=== PATIENT | male | born 1960 | race Caucasian/White ===

== ENCOUNTER → 2021-08-08 08:10 | Outpatient (CLI) | payer OTHER, SELFPAY ==
--- NOTE | ~2021-08-08 | XR_ITS ---
EXAMINATION:XR cervical spine min 6V DATE: 08/08/2021 08:28 INDICATION: Neck pain TECHNIQUE: AP, lateral in neutral, flexion, extension, lateral swimmers and odontoid views of the cer vical spine are provided. COMPARISON: None FINDINGS: There are 2 mm of anterolisthesis of C2 on C3 and C3 on C4 and 3 mm of anterolisthesis of C 4 on C5. Alignment reduces to anatomic with extension and is unchanged with flexion. The odontoid is intact. No fracture is identified. The vertebral body heights are maintained. There is severe loss of intervertebral disc space height at C5-6 and C6-7 and mild loss of disc space height throughout the remainder of the cervical spine. There is severe multilevel facet and uncovertebral joint osteoarthri tis. Prevertebral soft tissues are normal. IMPRESSION: 1. Severe cervical spondylosis without acute findings. Reviewed, dictated and finalized at location B. DIVER
== END ==
PROVIDERS: Visit Provider Chiropractor Rehabilitation
DX: M47.892 Other spondylosis, cervical region (principal)
CPT/HCPCS: 72052

== ENCOUNTER 2022-08-15 00:38 | Day surgery (SDC) | payer OTHER, SELFPAY ==
[2022-08-08 13:54] VITALS: BMI 35.8
[2022-08-15 06:27] VITALS: BP 133/74; PULSE 81; RESP 18; TEMP 36.3; O2SAT 96
[2022-08-15] MEDS: LACTATED RINGERS 1,000 ML 150 ML IV CONT (06:42)
[2022-08-15 06:47] LABS: Glucose Point of Care 176 mg/dl (65-105)
--- NOTE | 2022-08-15 06:53 | WPDANESEPPF ---
Anes - Initial Pre Proc Eval Procedure: Operation Date: 08/15/22 07:30 Proposed Procedures p Colonoscopy - Lacho Randall MD Date/Time: 08/15/22 06:53 Surgeon: Lacho Randall MD Pre Op Diagnosis: other fecal abnormalities Patient Data Age: 62 Gender: M Height: 1.78 m Weight: 111.8 kg Last Vital Signs Temp 36.3 C L 08/15/22 06:27 Pulse 81 08/15/22 06:27 Resp 18 08/15/22 06:27 BP 133/74 08/15/22 06:27 Pulse Ox 96 08/15/22 06:27 O2 Del Method Room Air 08/15/22 06:27 Allergies Allergy/AdvReac Type Severity Reaction Status Date / Time dextromethorphan Allergy Intermediate Shakiness Verified 08/15/22 06:25 guaifenesin Allergy Intermediate Shakiness Verified 08/15/22 06:25 oxycodone [From Percocet] AdvReac Intermediate Nausea and Verified 08/15/22 06:25 Vomiting Sulfa (Sulfonamide AdvReac Intermediate CONSTIPATIO Verified 08/15/22 06:25 Antibiotics) N Home Medications Medication Instructions Recorded Confirmed Type ferrous fumarate 325 mg (106 mg 325 mg PO BID 07/11/19 08/08/22 History iron) tablet acetaminophen 500 mg tablet 500 mg PO Q6H PRN Pain 09/15/19 08/08/22 History blood-glucose sensor (Dexcom G6 #9 ea 01/30/22 04/16/22 Rx Sensor device) blood-glucose transmitter (Dexcom #9 ea 01/30/22 04/16/22 Rx G6 Transmitter device) icosapent ethyl 1 gram capsule 2 g PO BID #360 caps 04/14/22 08/08/22 Rx (Vascepa) empagliflozin 25 mg tablet 25 mg PO DAILY #90 tabs 06/22/22 08/08/22 Rx (Jardiance) triamterene 37.5 1 tablet PO QAM #90 tabs 06/22/22 08/08/22 Rx mg-hydrochlorothiazide 25 mg tablet clonazepam 2 mg tablet 1 mg PO QHS PRN insomnia #45 tabs 07/01/22 08/08/22 Rx metformin 500 mg tablet,extended 1,000 mg PO HS 08/08/22 08/08/22 History release 24 hr pantoprazole 40 mg tablet,delayed 40 mg PO DAILY 08/08/22 08/08/22 History release pregabalin 150 mg capsule 150 mg PO BID 08/08/22 08/08/22 History rosuvastatin 10 mg tablet (Crestor) 10 mg PO HS 08/08/22 08/08/22 History Laboratory Tests 08/15/22 06:45 POC Capillary Glucose 176 mg/dl H mg/dl (65-105) Patient hx anesthesia problems: none Family hx anesthesia problems: none Results Review: All pre-operative results and documents have been reviewed as part of the pre-operative evaluation. [facility] Past Medical History Medical History BMI 34.0-34.9,adult BMI over 35 Diabetic neuropathy Essential (primary) hypertension Family history of GI malignancy Hyperlipidemia, unspecified Iron deficiency anemia Neck muscle spasm Other hyperlipidemia Sleep apnea in adult Spinal stenosis of lumbosacral region Type 2 diabetes mellitus without complications Family History Family History Mother Patient's mother is in good health Father Family history of diabetes mellitus in first degree relative Family history of heart disease in male family member before age 55 Other Family history of cardiovascular disease Social History Social History Smoking status: Never smoker Alcohol intake: current Substance use: never Substance use type: does not use Lack of Transportation: No Lack of Food: Never True Current Housing: I Have Housing Concerned About Future Housing: No Difficulty Paying Gas/Electric Bills: No Difficulty Paying for Meds: No Currently Unemployed: No Education: Bachelor's Degree Difficulty w/ Childcare or Family Care: No Living arrangements: with family Spiritual care concerns: No Anes - Eval Final PreProcedure Day of Procedure 08/15/22 06:53 Patient weight: obese Heart: regular rate and rhythm Lungs: clear to auscultation Airway: Mallampati scale class II Neurological: alert and oriented Last oral intake: >/= 8 hours ASA classification: III Emergent: no Anesthetic marty
--- NOTE | 2022-08-15 07:24 | PM.HPGS ---
History of Present Illness History of Present Illness Consent: Risks, benefits, and alternatives have been discussed and questions answered. Patient agrees to proceed with procedure. Chief complaint: positive cologuard test Narrative: Jake Shannon is a 62 year old male Presents for screening colonoscopy. Patient recently found to have positive Cologuard test. Patient reports his weight appetite and bowel movements are normal. Patient denies abdominal pain. He has had no bleeding. Family history noncontributory. Previous colonoscopy 10 years ago revealed a benign lipoma. Review of Systems Review of Systems: Review of systems is noncontributory. [facility] Past Medical History Medical History BMI 34.0-34.9,adult BMI over 35 Diabetic neuropathy Essential (primary) hypertension Family history of GI malignancy Hyperlipidemia, unspecified Iron deficiency anemia Neck muscle spasm Other hyperlipidemia Sleep apnea in adult Spinal stenosis of lumbosacral region Type 2 diabetes mellitus without complications Family History Family History Mother Patient's mother is in good health Father Family history of diabetes mellitus in first degree relative Family history of heart disease in male family member before age 55 Other Family history of cardiovascular disease Social History Social History Smoking status: Never smoker Alcohol intake: current Substance use: never Substance use type: does not use Lack of Transportation: No Lack of Food: Never True Current Housing: I Have Housing Concerned About Future Housing: No Difficulty Paying Gas/Electric Bills: No Difficulty Paying for Meds: No Currently Unemployed: No Education: Bachelor's Degree Difficulty w/ Childcare or Family Care: No Living arrangements: with family Spiritual care concerns: No Meds Home Medications and Allergies Home Medications Medication Instructions Recorded Confirmed Type ferrous fumarate 325 mg (106 mg 325 mg PO BID 07/11/19 08/08/22 History iron) tablet acetaminophen 500 mg tablet 500 mg PO Q6H PRN Pain 09/15/19 08/08/22 History blood-glucose sensor (Dexcom G6 #9 ea 01/30/22 04/16/22 Rx Sensor device) blood-glucose transmitter (Dexcom #9 ea 01/30/22 04/16/22 Rx G6 Transmitter device) icosapent ethyl 1 gram capsule 2 g PO BID #360 caps 04/14/22 08/08/22 Rx (Vascepa) empagliflozin 25 mg tablet 25 mg PO DAILY #90 tabs 06/22/22 08/08/22 Rx (Jardiance) triamterene 37.5 1 tablet PO QAM #90 tabs 06/22/22 08/08/22 Rx mg-hydrochlorothiazide 25 mg tablet clonazepam 2 mg tablet 1 mg PO QHS PRN insomnia #45 tabs 07/01/22 08/08/22 Rx metformin 500 mg tablet,extended 1,000 mg PO HS 08/08/22 08/08/22 History release 24 hr pantoprazole 40 mg tablet,delayed 40 mg PO DAILY 08/08/22 08/08/22 History release pregabalin 150 mg capsule 150 mg PO BID 08/08/22 08/08/22 History rosuvastatin 10 mg tablet (Crestor) 10 mg PO HS 08/08/22 08/08/22 History Allergies Allergy/AdvReac Type Severity Reaction Status Date / Time dextromethorphan Allergy Intermediate Shakiness Verified 08/15/22 06:25 guaifenesin Allergy Intermediate Shakiness Verified 08/15/22 06:25 oxycodone [From Percocet] AdvReac Intermediate Nausea and Verified 08/15/22 06:25 Vomiting Sulfa (Sulfonamide AdvReac Intermediate CONSTIPATIO Verified 08/15/22 06:25 Antibiotics) N Vital Signs Vital Signs - 24 hr 08/15/22 06:27 Temperature 97.4 F L Pulse Rate 81 Respiratory Rate 18 Blood Pressure 133/74 Pulse Oximetry 96 Oxygen Delivery Room Air Exam Narrative: Physical exam reveals patient to be alert. Vital signs stable. HEENT exam is unremarkable. Patient is anicteric. Lungs are clear to auscultation and percussion. Heart is without murmur or extra sounds.
[2022-08-15 07:53] VITALS: BP 108/63; PULSE 74; RESP 21; TEMP 36.3; O2SAT 98
[2022-08-15 08:03] VITALS: BP 100/55; PULSE 77; RESP 21; TEMP 36.3; O2SAT 100
[2022-08-15 08:13] VITALS: BP 120/71; PULSE 78; RESP 26; TEMP 36.3; O2SAT 100
== END 2022-08-15 08:20 | disposition home or self-care (01) ==
PROVIDERS: PCP Family Medicine; Visit Provider Internal Medicine Gastroenterology
PROC: 0DJD8ZZ Inspection of Lower Intestinal Tract, Via Natural or Artificial Opening Endoscopic (ICD-10-PCS; CPT 45378; principal; 2022-08-15 07:30)
DX: R19.5 Other fecal abnormalities (principal); K57.30 Diverticulosis of large intestine without perforation or abscess without bleeding; I10 Essential (primary) hypertension; D50.9 Iron deficiency anemia, unspecified; E78.2 Mixed hyperlipidemia; E11.40 Type 2 diabetes mellitus with diabetic neuropathy, unspecified; Z79.84 Long term (current) use of oral hypoglycemic drugs; E66.9 Obesity, unspecified; Z68.35 Body mass index [BMI] 35.0-35.9, adult
CPT/HCPCS: 45378; 82948; J2704; J7120

== ENCOUNTER 2023-06-03 12:49 | Outpatient (CLI) | payer OTHER, SELFPAY ==
--- NOTE | 2023-06-03 13:40 | NEURO_ITS ---
Impression: # Known diabetic complains of numbness of feet.History of lower back surgery as well. # Asymmetrical sensory neuropathy. Could be related to previous back surgery and small fiber neuropathy. # Normal needle/EMG exam Nerve Conduction Studies Anti Sensory Summary Table Stim Site NR Peak (ms) P-T Amp (?V) Site1 Site2 Delta-P (ms) Dist (cm) Iván (m/s) Left Saphenous Anti Sensory (Ant Med Mall) NO RESPONSE 14cm NR 14cm Ant Med Mall 0.0 Right Saphenous Anti Sensory (Ant Med Mall) 14cm 3.8 18.8 14cm Ant Med Mall 3.8 0.0 Left Sup Fibular Anti Sensory (Ant Lat Mall) NO RESPONSE 14 cm NR 14 cm Ant Lat Mall 16.0 Right Sup Fibular Anti Sensory (Ant Lat Mall) 14 cm 3.6 13.6 14 cm Ant Lat Mall 3.6 16.0 44 Left Sural Anti Sensory (Lat Mall) NO RESPONSE Calf NR Calf Lat Mall 16.0 Right Sural Anti Sensory (Lat Mall) Calf 3.9 28.7 Calf Lat Mall 3.9 16.0 41 Motor Summary Table Stim Site NR Onset (ms) O-P Amp (mV) Site1 Site2 Delta-0 (ms) Dist (cm) Iván (m/s) Left Peroneal Motor (Vastus Med) Ankle 3.8 4.3 Popit Ankle 10.0 42.0 42 Popit 13.8 4.2 Right Peroneal Motor (Vastus Med) Ankle 3.7 5.2 Popit Ankle 9.7 41.0 42 Popit 13.4 5.0 Left Tibial Motor (Abd Crane Brev) Ankle 4.1 0.9 Knee Ankle 9.8 44.0 45 Knee 13.9 1.0 Right Tibial Motor (Abd Crane Brev) Ankle 4.0 4.9 Knee Ankle 10.5 43.0 41 Knee 14.5 2.2 F Wave Studies NR F-Lat (ms) L-R F-Lat (ms) Left Peroneal (Mrkrs) (EDB) 54.32 0.88 Right Peroneal (Mrkrs) (EDB) 53.44 0.88 Left Tibial (Mrkrs) (Abd Hallucis) 54.30 0.03 Right Tibial (Mrkrs) (Abd Hallucis) 54.27 0.03 EMG Side Muscle Nerve Root Ins Act Fibs Amp Dur Recrt Comment Right AntTibialis Dp Br Fibular L4-5 Nml Nml Nml Nml Nml Right Gastroc Tibial S1-2 Nml Nml Nml Nml Nml Right Fibularis Long Sup Br Fibular L5-S1 Nml Nml Nml Nml Nml Right Flex Dig Long Tibial L5-S2 Nml Nml Nml Nml Nml Right Ext Dig Brev Dp Br Fibular L5, S1 Nml Nml Nml Nml Nml Left AntTibialis Dp Br Fibular L4-5 Nml Nml Nml Nml Nml Left Gastroc Tibial S1-2 Nml Nml Nml Nml Nml Left Fibularis Long Sup Br Fibular L5-S1 Nml Nml Nml Nml Nml Left Flex Dig Long Tibial L5-S2 Nml Nml Nml Nml Nml Left Ext Dig Brev Dp Br Fibular L5, S1 Nml Nml Nml Nml Nml MTDD
== END 2023-06-03 12:50 | disposition home or self-care (01) ==
LOC: ANHNEURO 12:51
PROVIDERS: PCP Family Medicine; Visit Provider Student in an Organized Health Care Education/Training Program
DX: G62.89 Other specified polyneuropathies (principal); Z98.890 Other specified postprocedural states
CPT/HCPCS: 95886; 95911

== ENCOUNTER 2023-10-23 09:20 | Outpatient (CLI) | payer MEDICARE, OTHER, SELFPAY ==
--- NOTE | ~2023-10-23 | XR_ITS ---
EXAMINATION: XR lumbar spine 6V w bending DATE: 10/23/2023 09:39 INDICATION: Spinal stenosis, lumbosacral region. TECHNIQUE: 7 views of lumbar spine including standing views were obtained. COMPARISON: None. FINDINGS: Bone alignment is normal. There is mild chronic anterior wedging of L1 vertebral body. Ther e are changes of anterior posterior fusion procedures at L4-L5 with interbody devices and pedicle scr ews. There is mildly decreased disc height at L1-L2 and L3-L4. The spine is hypomobile with flexion a nd extension. There is multilevel severe facet joint osteoarthritis. IMPRESSION: 1. Mild lumbar spondylosis. 2. Anterior and posterior fusion procedures at L4-L5. Reviewed, dictated and finalized at location A.
== END 2023-10-23 09:21 ==
PROVIDERS: PCP Family Medicine; Visit Provider Family Medicine
DX: M48.07 Spinal stenosis, lumbosacral region (principal); M43.06 Spondylolysis, lumbar region; Z98.1 Arthrodesis status
CPT/HCPCS: 72114

== ENCOUNTER 2023-11-02 15:06 | Outpatient (CLI) | payer MEDICARE, OTHER, SELFPAY ==
--- NOTE | 2023-11-02 15:16 | ECG_ITS ---
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 Measurements Intervals [place] Rate: 83 P: 13 TN: 181 QRS: 1 QRSD: 82 T: 0 QT: 338 QTc: 398 Interpretive Statements SINUS RHYTHM No previous ECG available for comparison Electronically Signed On 11-03-2023 14:13:57 CDT by Carlo Parks M.D.
[2023-11-02 15:32] LABS: Basophils Absolute Auto 0.1 K/mm3 (0.0-0.1); Eosinophils Absolute Auto 0.1 K/mm3 (0-0.3); Eosinophils Percent Auto 1.8 % (0-4.4); Hematocrit 44.6 % (42.0-52.0); Hemoglobin 14.9 g/dL (14.0-18.0); Immature Granulocyte Absolute 0.06 K/mm3 (0.00-0.031); Lymphocytes Absolute Auto 1.93 K/mm3 (0.9-3.2); Lymphocytes Percent Auto 30.9 % (18.3-44.2); Mean Corpuscular HGB Conc 33.4 g/dl (32-36); Mean Corpuscular Hemoglobin 28.1 pg (26-34); Mean Corpuscular Volume 84.2 fl (80-100); Mean Platelet Volume 10.8 fl (7.4-10.4); Monocytes Absolute Auto 0.7 K/mm3 (0.1-0.6); Monocytes Percent Auto 11.9 % (2.6-8.5); Neutrophils Absolute Auto 3.3 K/mm3 (1.3-6.7); Neutrophils Percent Auto 53.4 % (45.5-73.1); Platelet Count Result 158 k/mm3 (150-375); Red Cell Distribution Width 15.3 % (11.5-14.5); White Blood Count 6.2 K/mm3 (4.5-10.0)
[2023-11-02 15:56] LABS: Anion Gap 6 mmol/L (4-12); Blood Urea Nitrogen 14 mg/dL (9-20); Calcium 9.3 mg/dL (8.4-10.2); Carbon Dioxide 31 mmol/L (22-30); Chloride 104 mmol/L (98-107); Estimated Glomerular Filt Rate > 60; Glucose 112 mg/dL (65-110); Potassium 3.6 mmol/L (3.4-5.0); Sodium 141 mmol/L (137-145)
== END 2023-11-02 15:07 | disposition home or self-care (01) ==
LOC: ANHSURGERY 15:12
PROVIDERS: PCP Family Medicine; Visit Provider Surgery
DX: Z01.818 Encounter for other preprocedural examination (principal); K64.8 Other hemorrhoids; K64.5 Perianal venous thrombosis; E11.9 Type 2 diabetes mellitus without complications; I10 Essential (primary) hypertension
CPT/HCPCS: 36415; 80048; 85025; 93005

== ENCOUNTER 2023-11-03 00:58 | Day surgery (SDC) | payer MEDICARE, OTHER, SELFPAY ==
[2023-11-02 14:50] VITALS: BMI 36.7
--- NOTE | 2023-11-02 14:57 | PC.NURSE ---
Report to the Outpatient Waiting Room, entrance under the green pavilion located off [facility], at time ___1000____ on date ___11/03/23____. Planned Procedure Time: __1200 . Time changes happen often and if your time is changed the preop area will call you the afternoon before. - You and your visitor will be asked to self-screen and do not enter if you have any COVID symptoms. - A mask is optional within the hospital at this time. Patients may have clear liquids (water, carbonated beverages, clear teas, apple juice) until 3 hours prior to surgery (0900 AM) with a maximum of 20 ounces. - No food from midnight until time of surgery Take the following medications with a SIP of water the morning of surgery: _TYLENOL, PREGABALIN_ DO NOT STOP ANY OF YOUR OTHER PRESCRIPTION MEDICATIONS PRIOR TO SURGERY ?EXCEPT THE FOLLOWING Medications to discontinue per physician ____N/A Date to take last dose Please no make-up, nail malay, hairspray, perfume, deodorant, or body powder the day of surgery. No jewelry (including any body piercings) or valuables the day of surgery, leave them at home. Please take a shower or bath the night before, or the morning of, surgery with an antibacterial soap. Wear comfortable, loose fitting clothing. - Jewelry must be removed prior to entering the operating room. Rings and piercings that are not removed may be cut off. - The hospital will not accept responsibility for valuables. - Please leave all valuables, including medications, at home the day of surgery. If you are going home after surgery, a licensed straddle bug driver must drive you home. - NO public transportation without another adult if you receive anesthesia. - We recommend that an adult stay with you for 24 hours following discharge. - We also recommend that you do not drive, make important decision, drink alcoholic beverages, or take any drugs that were not prescribed by your health care provider for at least 24 hours after your discharge time. Follow any additional instructions given to you from your surgeon. If you or anyone in your household have experienced Covid symptoms in the past week, please notify your surgeon or the nurse liaison at the phone number below for possible testing. Telephone instructions given to _PATIENT_and asked if any additional questions and then verbalized understanding. Patient advised to call surgeon office or pre surgery nurse liaison [phone] if any additional questions.
[2023-11-03] VITALS (8 sets, daily range): BP systolic 142–159; BP diastolic 77–86; PULSE 87–99; RESP 12–20; TEMP 36–36.8; O2SAT 92–100
--- NOTE | 2023-11-03 09:11 | WPDHPUPDATE1 ---
History and Physical Update Update Date/Time: 11/03/23 09:11 History and Physical has been reviewed, including an updated exam of the patient. There are NO changes in the patient's condition. Risks, benefits, and alternatives have been discussed and questions answered. Patient agrees to proceed with procedure.
[2023-11-03] MEDS: LACTATED RINGERS 1,000 ML 30 ML IV CONT ×2 (11:00→13:04)
[2023-11-03] MEDS: ACETAMINOPHEN 500 MG TABLET 1000 MG PO (11:00)
[2023-11-03] MEDS: KETOROLAC 15 MG/ML VIAL (*BKC) IV PUSH (11:00)
[2023-11-03 11:07] LABS: Glucose Point of Care 142 mg/dl (65-105)
--- NOTE | 2023-11-03 11:31 | WPDANESEPPF ---
Anes - Initial Pre Proc Eval Procedure: Operation Date: 11/03/23 12:00 Proposed Procedures p Excision Thrombosed External Hemorrhoid, Possible Rubberband Ligation of Internal Hemorrhoids - Adrian Noriega MD Date/Time: 11/03/23 11:31 Surgeon: Adrian Noriega MD Pre Op Diagnosis: Thrombosed Ext Hemorrhoid, Prolapse Int Hemorrhoid Patient Data Age: 63 Gender: M Height: 1.75 m Weight: 112.94 kg Allergies Allergy/AdvReac Type Severity Reaction Status Date / Time dextromethorphan Allergy Intermediate Shakiness Verified 11/02/23 14:46 guaifenesin Allergy Intermediate Shakiness Verified 11/02/23 14:46 oxycodone [From Percocet] AdvReac Intermediate Nausea and Verified 11/02/23 14:46 Vomiting Sulfa (Sulfonamide AdvReac Intermediate CONSTIPATIO Verified 11/02/23 14:46 Antibiotics) N Home Medications Medication Instructions Recorded Confirmed Type ferrous fumarate 325 mg (106 mg 325 mg PO BID 07/11/19 11/02/23 History iron) tablet cholecalciferol (vitamin D3) 25 25 mcg PO DAILY 08/18/22 11/02/23 History mcg (1,000 unit) capsule multivitamin with minerals-folic 2 tablet PO DAILY 08/18/22 11/02/23 History acid 200 mcg chewable tablet (Adult Multivitamin Gummies) blood-glucose sensor (Dexcom G6 #9 ea 11/09/22 11/02/23 Rx Sensor device) blood-glucose transmitter (Dexcom #9 ea 11/09/22 11/02/23 Rx G6 Transmitter device) empagliflozin 25 mg tablet 25 mg PO DAILY #90 tabs 06/25/23 11/02/23 Rx (Jardiance) triamterene 37.5 1 tablet PO QAM #90 tabs 06/25/23 11/02/23 Rx mg-hydrochlorothiazide 25 mg tablet clonazepam 1 mg tablet 1 mg PO QHS #90 tabs 07/27/23 11/02/23 Rx cyanocobalamin (vitamin B-12) 1,000 mcg PO DAILY 07/27/23 11/02/23 History 1,000 mcg tablet icosapent ethyl 1 gram capsule 2 g PO BID #360 caps 07/27/23 11/02/23 Rx (Vascepa) pantoprazole 40 mg tablet,delayed 40 mg PO DAILY #90 tabs 07/27/23 11/02/23 Rx release pregabalin 150 mg capsule 150 mg PO Q8H #270 caps 07/27/23 11/02/23 Rx rosuvastatin 10 mg tablet (Crestor) 10 mg PO HS #90 tabs 07/27/23 11/02/23 Rx acetaminophen 500 mg tablet 500 mg PO Q6H 10/27/23 11/02/23 History meloxicam 15 mg tablet 15 mg PO DAILY #30 tabs 10/27/23 11/02/23 Rx semaglutide 2 mg/dose (8 mg/3 mL) 2 mg (0.75 mL) subcut WEEKLY #9 mL 10/27/23 11/02/23 Rx subcutaneous pen injector (Ozempic) metformin 500 mg tablet,extended 1,000 mg PO BID 11/02/23 11/02/23 History release 24 hr Laboratory Tests 11/03/23 11:00 POC Capillary Glucose 142 H mg/dl (65-105) Patient hx anesthesia problems: none Family hx anesthesia problems: none Results Review: All pre-operative results and documents have been reviewed as part of the pre-operative evaluation. [facility] Past Medical History Medical History Complex third degree hemorrhoid Decreased libido Diabetic neuropathy Diverticulosis Essential (primary) hypertension Family history of GI malignancy Fractured nose Hx of fracture of wrist Hyperlipidemia, unspecified Insomnia Iron deficiency anemia Low back pain Neck muscle spasm Other hyperlipidemia Rash of toe Sleep apnea in adult Spinal stenosis of lumbosacral region Type 2 diabetes mellitus without complications Surgical History Surgical History H/O elbow surgery History of laminectomy Hx of colonoscopy Family History Family History Mother Thyroid activity decreased Heart disease Dementia Father Family history of diabetes mellitus in first degree relative Family history of heart disease in male family member before age 55 COPD (chronic obstructive pulmonary disease) Diabetes mellitus Pleurisy Sibling Cancer Lung cancer Tobacco abuse Sibling Cancer H/O Whipple procedure Diabetes mellitus Thyroid acti
[2023-11-03] MEDS: ceFAZolin 2 GM/D5W 50 ML 2 GM/50 ML BAG IVPB (11:53)
[2023-11-03] MEDS: BUPIVACAINE/EPINEPHRINE 0.5% 10 ML VIAL 40 ML INFILTRATE (12:31)
--- NOTE | 2023-11-03 12:46 | P.OP_ITS ---
Procedure Note - Detailed Date of Procedure 11/03/23 Pre-op Diagnosis Thrombosed Ext Hemorrhoid, Prolapse Int Hemorrhoid Post-op Diagnosis Same Procedure Performed Excision left-sided thrombosed external hemorrhoid, rubber-band ligation p rolapsed left lateral internal hemorrhoid. 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 The pain from this has improved but it is still very tender and uncomfortable. He was seen in the office yesterday and found to have a large left-sided thrombosed external hemorrhoid. He was seen by my partner back in July with intermittently p rolapsing and bleeding internal hemorrhoids. He is taken to surgery now for excision of the thrombosed external hemorrhoid and possibly rubber-band ligation of the prolapsing internal hemorrhoid if it can be identified. Findings Thrombosed external hemorrhoid was as expected. There was a large internal hemorrhoid also on the left side but slightly more posterior than the thrombosed external hemorrhoid. This was rubber-band ligated. I did not see any additional internal hemorrhoids of significance. Description of Procedure Patient was taken to the operating room and induced into general anesthesia. He was then turned and placed in prone andrew-knife position. The buttocks were taped apart. Prep and drape was carried out. Local anesthetic was infiltrated using 0.5% Marcaine with epinephrine. 20 cc and deep subdermal was infiltrated as well as 20 cc intra sphincteric. I used a Hill-Donahue anoscope to expose the thrombosed external hemorrhoid. The hemorrhoid was excised without difficulty. Cautery was used but had little effect on the bleeding. The wound was closed with interrupted 3-0 chromic suture. The closure was hemostatic. I then looked again with a Hill-Donahue anoscope and found the large left-sided internal hemorrhoid. This was rubber-band ligated. I again reviewed the anal canal and saw no other significant pathology. I recheck the suture line again and it appeared satisfactory. We dressed the rectum with Xeroform gauze, fluffs, ABD and tape. Promise panties were placed as well. Estimated Blood Loss -10 Drains No Packing No Pathology Yes (Thrombosed external hemorrhoid) Complications No immediate complications Condition Stable Disposition PACU [facility] Billing Surgery - Charge Forward: Surgery Billing (Excision thrombosed external hemorrhoid, rubber-band ligation prolapsing internal hemorrhoid)
[2023-11-03 13:01] LABS: Glucose Point of Care 172 mg/dl (65-105)
--- NOTE | 2023-11-03 13:02 | SUR.PHASEI ---
1301: Simple mask removed.
== END 2023-11-03 14:25 | disposition home or self-care (01) ==
PROVIDERS: PCP Family Medicine; Visit Provider Surgery
PROC: (CPT 46320; principal; 2023-11-03 12:00)
DX: K64.5 Perianal venous thrombosis (principal); K64.8 Other hemorrhoids; E11.40 Type 2 diabetes mellitus with diabetic neuropathy, unspecified; I10 Essential (primary) hypertension; E78.5 Hyperlipidemia, unspecified; D50.9 Iron deficiency anemia, unspecified; E78.49 Other hyperlipidemia; G47.30 Sleep apnea, unspecified; Z79.85 Long-term (current) use of injectable non-insulin antidiabetic drugs; Z79.84 Long term (current) use of oral hypoglycemic drugs; E66.9 Obesity, unspecified; Z68.36 Body mass index [BMI] 36.0-36.9, adult
CPT/HCPCS: 46320; 82948; 88304; A9270; J0330; J0690; J1100; J1885; J2250; J2405; J2704; J3010; J7120

== ENCOUNTER 2023-12-29 14:03 | Outpatient (CLI) | payer MEDICARE, OTHER, SELFPAY ==
--- NOTE | ~2023-12-29 | XR_ITS ---
XR hip BI wo pelvis Ordering provider: Eliel Castellon MD History: . M25.551 - Pain in right hip . Comparison: None. FINDINGS: BONES: No acute fracture or dislocation. HIP JOINT SPACES: Normal. SACROILIAC JOINT SPACES: The sacroiliac joint spaces are normal. Shows a right sacroiliitis. PUBIC SYMPHYSIS: Normal. SOFT TISSUES: Normal. IMPRESSION: No acute osseous abnormality of the bilateral hips and pelvis. Reviewed, dictated and finalized at location A.
== END 2023-12-29 14:04 ==
PROVIDERS: PCP Family Medicine; Visit Provider Family Medicine
DX: M25.551 Pain in right hip (principal); M25.552 Pain in left hip
CPT/HCPCS: 73521

== ENCOUNTER 2024-04-25 14:58 | Outpatient (CLI) | payer MEDICARE, SELFPAY ==
--- NOTE | ~2024-04-25 | XR_ITS ---
EXAMINATION: XR toe 1st LT min 2V DATE: 04/25/2024 15:13 INDICATION: Left great toe injury and pain. TECHNIQUE: 4 views of left great toe were obtained. COMPARISON: None. FINDINGS: There is mild hallux valgus. No fracture. There is mild osteoarthritis of first metatarsoph alangeal joint and first interphalangeal joint. IMPRESSION: 1. Mild hallux valgus. 2. Mild polyarticular osteoarthritis. Reviewed, dictated and finalized at location A. 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
== END 2024-04-25 14:59 | disposition home or self-care (01) ==
LOC: MICIMG 15:02
PROVIDERS: PCP Family Medicine; Visit Provider Family Medicine
DX: M20.12 Hallux valgus (acquired), left foot (principal); M19.072 Primary osteoarthritis, left ankle and foot; S90.122A Contusion of left lesser toe(s) without damage to nail, initial encounter; X58.XXXA Exposure to other specified factors, initial encounter
CPT/HCPCS: 73660